=== PATIENT | male | born 1995 | race Hispanic/Latino ===

== ENCOUNTER 2017-04-17 18:18 | Emergency (ER) | payer SELFPAY ==
[2017-04-17] MEDS ORDERED: ACETAMINOPHEN 325 MG TAB ONE (19:07)
[2017-04-17 19:28] LABS: RAPID GROUP A STREP NEGATIVE (NEGATIVE)
[2017-04-17] MEDS ORDERED: BENZONATATE 100 MG CAPSULE PO ONE (20:00)
[2017-04-17] MEDS ORDERED: CEFTRIAXONE SODIUM 1 GM ONE (20:00)
== END 2017-04-17 20:14 | disposition home or self-care (01) ==
LOC: EDH 18:18
DX: J18.9 Pneumonia, unspecified organism (principal); R50.81 Fever presenting with conditions classified elsewhere
CPT/HCPCS: 71046; 87804 ×2; 87880; 96372; 99285; J0696